=== PATIENT | male | born 1965 | race Caucasian/White ===

== ENCOUNTER 2017-08-24 08:59 | Inpatient (IN) ==
[2017-08-24] MEDS ORDERED: XYLOCAINE-MPF 1% INJ ONE (09:18)
[2017-08-24] MEDS ORDERED: VANCOMYCIN 1 GM/NS 1 GM/250 ML IVPB IV ONE ×2 (09:19→12:00)
[2017-08-24] MEDS ORDERED: XYLOCAINE 1% INJ ONE (09:26)
[2017-08-24] MEDS ORDERED: TORADOL IV ONE (09:28)
[2017-08-24 09:31] LABS: URINE CULTURE PL NEEDED? NO
[2017-08-24 09:51] LABS: UR AMPHETAMINES QUAL PRESUMPTIVE POSITIVE (NONE DETECT); UR BARBITUATES QUAL NONE DETECTED (NONE DETECT); UR BENZODIAZEPIN QUAL NONE DETECTED (NONE DETECT); UR CANNABINOIDS QUAL NONE DETECTED (NONE DETECT); UR COCAINE QUAL NONE DETECTED (NONE DETECT); UR MDMA QUAL NONE DETECTED (NONE DETECT); UR METHADONE QUAL NONE DETECTED (NONE DETECT); UR METHAMPHETAMINE QUAL PRESUMPTIVE POSITIVE (NONE DETECT); UR OPIATES QUAL NONE DETECTED (NONE DETECT); UR OXYCODONE QUAL NONE DETECTED (NONE DETECT); UR PCP QUAL NONE DETECTED (NONE DETECT); UR TCA QUAL NONE DETECTED (NONE DETECT)
[2017-08-24 09:57] LABS: MANUAL DIFF NEEDED? NO
[2017-08-24 09:59] LABS: BILIRUBIN URINE NEGATIVE (NEGATIVE); BLOOD URINE NEGATIVE (NEGATIVE); CLARITY CLEAR (CLEAR); COLOR YELLOW; GLUCOSE URINE NEGATIVE (NEGATIVE); LEUKOCYTES URINE TRACE (NEGATIVE); NITRITE URINE NEGATIVE (NEGATIVE); PH URINE 6.5; PROTEIN URINE TRACE mg/dL (NEGATIVE); URINE EPITHELIAL CELLS <10 /HPF (<10); URINE SOURCE CLEAN CATCH; URINE WBC <10 /HPF (<10); UROBILINOGEN URINE 4+(12 mg/dL)
--- NOTE | 2017-08-24 10:04 | PROVIDER DOCUMENTATION ---
This chart was entered by Heide Brannon Scribe, acting as scribe for Tan Davis MD. HPI-Rash/Wound/ReCheck - General Chief Complaint: Sores/Lesions Stated Complaint: RETURN/RECHECK Time Seen by Provider: 08/24/17 09:01 Source: patient Allergies/Adverse Reactions: Allergies Allergy/AdvReac Type Severity Reaction Status Date / Time No Known Allergies Allergy Verified 08/24/17 08:13 Home Medications: Home Medication List Medication Instructions Recorded Confirmed Last Taken Type Clindamycin [Cleocin] 150 mg PO Q6HR #30 capsule 08/22/17 08/24/17 08/23/17 21: 00 Rx - History of Present Illness-Dermatology Nature of Presenting Problem: Patient is a 52 year old male who presents to the ED with swelling and redness to left elbow. Patient states symptoms have been present for 2 days. Patient states unknown cause. Patient denies fever. Location: reports: upper extremity (left elbow) Quality: reports: painful Severity: reports: moderate Onset/Duration: reports: 2 days ago Timing: reports: still present Context/Associated Symptoms: reports: swelling/mass/lumps (swelling to left elbow), tender area (left elbow), other (redness to left elbow) Identifiable cause?: No Exposure: reports: unknown cause Similar Symptoms Previously?: Yes (present for 2 days ) Recently seen or treated by another doctor?: No - Recheck Treated days ago.: 2 Antibiotics given: prescription Symptoms since procedure:: reports: pain, redness Review of Systems - Adult - REVIEW OF SYSTEMS - ADULT Constitutional: reports: no symptoms reported Eyes: reports: no symptoms reported Ears, Nose, Mouth & Throat: reports: no symptoms reported Cardiovascular: reports: no symptoms reported Respiratory: reports: no symptoms reported Gastrointestinal: reports: no symptoms reported Genitourinary: reports: no symptoms reported Musculoskeletal: reports: other (left elbow pain). denies: back pain, neck pain Integumentary: reports: other (left elbow redness and swelling). denies: hives , itching, rash Neurological: reports: no symptoms reported Psychiatric: reports: no symptoms reported Endocrine: reports: no symptoms reported Hematologic/Lymphatic: reports: no symptoms reported Allergic/Immunologic: reports: no symptoms reported All Other Systems: Reviewed and Negative Past History - Adult - PAST MEDICAL HISTORY-ADULT Review of Records: reports: Nursing Assessment Review, Medications Reviewed, Social history reviewed & non-contributory. Major Childhood Illnesses: reports: denies history Cardiovascular: reports: denies history Respiratory: reports: denies history Gastrointestinal: reports: ulcer Obstetrical/Gynecological: reports: denies history Genitourinary: reports: denies history Musculoskeletal: reports: denies history Neurological: reports: denies history Endocrine/Immune: reports: denies history Other Conditions: reports: denies history - PRIOR SURGERIES/PROCEDURES Surgical/Procedure History: reports: reviewed, not pertinent - IMMUNIZATION STATUS Childhood Immunizations: See Nurse Assessment Flu Vaccine: See Nurse Assessment - FAMILY HISTORY Family History: reviewed, not pertinent - SOCIAL HISTORY Smoking: cigarettes, less than 1 pack/day Provider spent 3-5 mins advising pt. on dangers of tobacco.: Discussed manners to quit use, and f/u contacts for add'l counseling. Substance Use: denies Living Situation: family Physical Exam-General - PHYSICAL EXAM-ADULT Initial Vital Signs Reviewed: Yes - CONSTITUTIONAL General Appearance: appears well, alert, no apparent distress. negative: lethargic, slow to respond - EYES Eyes: PERRL/EOMI, pink conjunctivae. negative: pale conjunctivae, sunken eyes - HEAD, EARS, NOSE, MOUTH & THROAT HENMT: normal ENT inspection. negative: angioedema, hearing deficit - NECK Neck: normal inspection. negative: lymphadenopathy, tender lateral - RESPIRATORY Respiratory: chest non-tender, lungs clear, normal breath sounds. negative: rales, rhonchi, stridor - CARDIOVASCULAR Cardiovascular: normal peripheral pulses, regular rate, rhythm. negative: tachycardia, systolic murmur - GASTROINTESTINAL (ABDOMEN) Abdominal Exam: normal bowel sounds, non tender, soft. negative: guarding, rebound - LYMPHATIC Lymphatic: no adenopathy. negative: enlargement, streaking - MUSCULOSKELETAL Back Exam: normal inspection. negative: ecchymosis, swelling Extremity: erythema (left elbow), swelling (left elbow), tenderness (left elbow) , other (limited ROM to left elbow due to pain and swelling). negative: normal range of motion, non-tender, normal inspection - SKIN Integumentary: erythema (left elbow), swelling (left elbow), warm (left elbow). negative: diaphoresis, ecchymosis, pallor - NEUROLOGIC Neurologic: grossly normal. negative: aphasia, facial droop - PSYCHIATRIC Psych/Mental Status: normal mood/affect, oriented x 3. negative: paranoid, tearful Progress - PLAN OF CARE/RESULTS Progress/Plan/Lab Results: Vital Signs - 8 hr 08/24/17 09:17 Temperature 97.5 F L Pulse Rate 67 Respiratory Rate 18 Blood Pressure 120/78 O2 Sat by Pulse Oximetry 100 Laboratory Results - last 24 hr 08/24/17 08/24/17 09:00 09:00 Urine Source CLEAN CATCH Urine Color YELLOW Urine Clarity CLEAR Urine pH 6.5 Ur Specific [place] 1.020 Urine Protein TRACE A Urine Ketones TRACE Urine Blood NEGATIVE Urine Nitrite NEGATIVE Urine Bilirubin NEGATIVE Urine Urobilinogen 4+(12 mg/dL) Urine WBC TRACE A Urine Microscopic WBC <10 Ur Epithelial Cells <10 Urine Glucose NEGATIVE Urine Opiates Screen NONE DETECTED Ur Oxycodone Screen NONE DETECTED Urine Methadone Screen NONE DETECTED Ur Barbituates Screen NONE DETECTED Ur Tricyclics Screen NONE DETECTED Ur Phencyclidine Scrn NONE DETECTED Ur Amphetamines Screen PRESUMPTIVE POSITIVE A U Methamphetamines Scrn PRESUMPTIVE POSITIVE A Urine MDMA Screen NONE DETECTED U Benzodiazepines Scrn NONE DETECTED Urine Cocaine Screen NONE DETECTED U Cannabinoids Screen NONE DETECTED Orders Category Date Time Status Admit - [facility] Routine AdmDCTranf 08/24/17 09:33 Ordered I and D Set up DIRECTED Care 08/24/17 09:18 Active I&D [I and D Set up] DIRECTED Care 08/24/17 09:27 Active Saline Loc NOW Care 08/24/17 09:19 Active Saline Loc NOW Care 08/24/17 09:27 Active BLOOD CULTURE [BLDCUL] Stat Lab 08/24/17 09:17 Ordered CBC WITH ELECTRONIC DIFF [HEME] Stat Lab 08/24/17 09:32 Results CMP [COMPREHENSIVE METABOLIC PANEL] [CHEM] Stat Lab 08/24/17 09:32 Received UA NIMS W/REFLEX CULT PL [URINALYSIS] Stat Lab 08/24/17 09:00 Completed UDS [URINE DRUG SCREEN PL] Stat Lab 08/24/17 09:00 Completed WOUND CULTURE INC GRAM STAIN [RM] Routine Lab 08/24/17 09:39 Ordered Cefazolin 1 gm/D5w [Kefzol 1 gm/D5w] Med 08/24/17 09:45 Active 1 gm in 50 ml IV Q8H Ketorolac [Toradol] Med 08/24/17 09:28 Discontinued 30 mg IV NOW ONE Lidocaine 1% Pf [Xylocaine-Mpf 1%] Med 08/24/17 09:18 Discontinued 5 ml INJ NOW ONE Lidocaine 1% [Xylocaine 1%] Med 08/24/17 09:26 Discontinued 2 ml INJ NOW ONE Vancomycin 1 gm/Ns Med 08/24/17 09:19 Active 1 gm in 250 ml IV NOW Transfer/Admit Order [TRANSFER] Routine Transfer 08/24/17 09:36 Ordered Result Diagrams: 08/24/17 09:32 - REASSESSMENT Reassessment #1 Time Reassessed: 10:03 Status: unchanged - CONSULTS/PCP/HOSPITALIST Notification #1 *Consult/PCP/Hospitalist*: Dr Miller Time Discussed: 09:00 Consult Disposition: Admit Procedures - INCISION & DRAINAGE Site: left elbow Abscess Type: Subcutaneous Prepped with: Betadine Anesthetic: 1%, Lidocaine/Xylocaine Volume of Anesthetic (ml's): 5 Blade Size: 11 Packing placed?: Yes Sterile Dressing Applied?: Yes Drainage: Small Amount Departure - Departure Date of Disposition Decision: 08/24/17 Time of Disposition Decision: 10:03 DIAGNOSIS: Cellulitis of left elbow Disposition: ADMITTED INPATIENT 09 Certified Medical Emergency: Emergent Condition: Stable Referrals and Follow-Ups: None,PCP [Primary Care Provider] - - Critical Care Note This patient required my direct & personal management of CC.: No Attestation - Physician/ MARU Attestation Patient care was provided by Advanced Practice Provider:: Yes Advanced Practice Provider:: Marlin Santana Advanced Practice Provider documentation review:: The Mid-level provider documentation, treatment plan and medical decision making was reviewed by the physician who agrees with all treatment and medical decision making by the MLP. The physician spent face to face time with patient:: Yes Advanced Practice Provider documentation review:: Supervising physician onsite and consulted in the evaluation and care of this patient. The physician did have a face to face encounter with the patient. This chart was documented by the indicated scribe, (Heide Brannon Scribe) and accurately reflects the services I performed and decisions made by me, Tan Davis MD, as attested by the provider's signature.
[2017-08-24 10:17] LABS: AGAP 11; ALKALINE PHOSPHATASE 70 U/L (32-122); BUN 12 mg/dL (8-22); CALCIUM 9.6 mg/dL (8.8-10.2); CHLORIDE 97 mmol/L (98-107); COSMO 272; GOT 64 U/L (10-34); GPT 34 U/L (10-44); POTASSIUM 3.4 mmol/L (3.5-5.1); SODIUM 135 mmol/L (136-145); TCO2 26 mmol/L (25-35); TOTAL PROTEIN 7.5 g/dL (6.3-8.3)
[2017-08-24 10:41] LABS: BASO% 0.2 % (0.0-0.8); EOS# 0.09 X1000 (0.0-0.7); EOS% 0.8 % (0.0-10.0); HEMATOCRIT 42.2 % (42.0-52.0); IMM GRAN# 0.02 X1000 (0.0-0.04); IMM GRAN% 0.2 % (0.0-0.5); LYMPH# 1.47 X1000 (1.2-3.4); LYMPH% 13.2 % (20.5-51.1); MCHC 35.5 g/dL (33-37); MCV 95.7 FL (81-99); MONO# 1.34 X1000 (0.11-0.59); MONO% 12.1 % (1.7-9.3); MPV 10.7 FL (7.4-10.4); NEUT% 73.5 % (42.2-75.2); PLT 226 X1000 (130-400); RBC 4.41 XMIL (4.7-6.1)
[2017-08-24] MEDS: KEFZOL 1 GM/D5W 1 GM/50 ML IVPB IV SCH ×2 (10:55→17:53)
--- NOTE | 2017-08-24 10:58 | Diag Imaging Result Doc PS360 ---
EXAM: ELBOW COMPLETE RIGHT HISTORY: cellulitis, evaluate for effusion TECHNIQUE: Three views COMPARISON: None. FINDINGS: There is a 4 mm soft tissue calcification or foreign body medially. No effusion is appreciated. There is an erosion with osteophyte formation involving the anterior distal humerus, likely lateral condyle. There is a small olecranon spur. No soft tissue gas is appreciated. IMPRESSION: 1.No evidence for effusion. 2.Degenerative change with possible erosion lateral condyle and tiny olecranon spur. 3.Calcification versus foreign body medial soft tissues. Electronically signed by Leah Chavez 08/24/2017 10:56 AM
[2017-08-24] MEDS ORDERED: VANCOMYCIN IV PER PHARMACY MISC SCH (11:39)
[2017-08-24] MEDS ORDERED: TYLENOL PO PRN (13:04)
[2017-08-24] MEDS ORDERED: ZOFRAN ODT PO PRN (13:04)
[2017-08-24] MEDS: PERCOCET-5 PO PRN ×3 (13:29→21:52)
[2017-08-24] MEDS ORDERED: BOOSTRIX VACCINE IM ONE (17:04)
--- NOTE | 2017-08-24 18:27 | HISTORY AND PHYSICAL ---
CHIEF COMPLAINT: Left elbow pain. HISTORY OF PRESENT ILLNESS: This is a 52-year-old male with a history of gastric ulcer. He presented to the emergency room complaining of left elbow pain and swelling. The patient first presented on August 22 to the ER which was about 24 hours after first symptoms began. At this time he stated he had awakened that morning with his elbow that was red, swollen and tender with no other symptoms. He was given a prescription for clindamycin which he did not fill, he states it is still sitting at the pharmacy waiting on him to pick it. He returned to the emergency room 48 hours later for a recheck stating that at that time, he had erythema that was documented 15 x 9 cm up his arm with a red and warm elbow. Admission was recommended but the patient refused direct admission stating that he had something to do and he would return later. This was at about 8:30 the morning of admission. He returned to the emergency room about 45 minutes later. At that time he went underwent an I and D and reportedly cultures were obtained. He was given vancomycin and admitted for further evaluation and treatment. PAST MEDICAL HISTORY: Denies. SURGICAL HISTORY: Denies. SOCIAL HISTORY: He smokes a pack a day. He denies any alcohol use. He does use occasional methamphetamines. ALLERGIES: No known drug allergies. HOME MEDICATIONS: Denies. REVIEW OF SYSTEMS: A 14 point review of systems is discussed with patient with pertinent positives stated in HPI. He denied chest pain, palpitations, dizziness, syncope, cough, fever, chills, PND, orthopnea, shortness of breath, any nausea, vomiting, diarrhea, constipation, black or bloody vomitus, black or bloody stools, hematuria, dysuria, frequency, urgency. PHYSICAL EXAMINATION: GENERAL: This is a 52-year-old male who is sitting in the bed, in no distress. VITAL SIGNS: Blood pressure is 133/80 with a heart rate of 74, temperature is 97.5 degrees oral, room air saturations 99-100%. HEENT: Head is normocephalic, atraumatic. Pupils equal, round, react to light. EOMs are intact. Sclerae anicteric. Mucous membranes are moist. NECK: Supple. Trachea midline. CARDIOVASCULAR: Regular rate and rhythm. S1, S2 appreciated. PULMONARY: Breath sounds are clear. No increased work of breathing noted. GASTROINTESTINAL: Soft, nontender, nondistended. Bowel sounds in all 4 quadrants. MUSCULOSKELETAL: Good range of motion of joints. EXTREMITIES: No clubbing, cyanosis, or edema. Calves are nontender. Pulses are palpable x 4. SKIN: Warm and dry with a bandage intact to his left elbow with erythema noted above and below which is marked from the emergency room. NEUROLOGIC: He is alert and oriented x 3 with cranial nerves 2-12 grossly intact. DIAGNOSTICS: Labs WBC is 11.1, with a hemoglobin 15, hematocrit 42.2 and platelets of 226,000. Sodium 135, potassium 3.4, BUN 12, creatinine 0.7 with a glucose of 135. Total bilirubin is 1.3 with AST of 64. Urine drug screen is positive for methamphetamines and amphetamines. X-rays: Elbow x-ray revealed no evidence for effusion, degenerate changes with possible erosion to the lateral condyle and tiny olecranon spur with a 4 mm soft tissue calcification or foreign body that is medially. No soft tissue gas is appreciated. Blood cultures and wound culture are pending. ASSESSMENT: 1. Cellulitis left elbow. 2. Leukocytosis. 3. 4 mm foreign body to left arm. 4. Tobacco use and abuse. 5. Methamphetamine use within the last 24 hours. PLAN: He will be admitted to the floor. Will be placed on a regular diet. We will use Percocet for pain and Zofran for nausea. We will continue with vancomycin q. 12 hours as well as Kefzol q. 8h. We will consult General Surgery with packing and dressing changes per their expertise. Further treatments pending hospital course. Dictated by MARY JANE Hemphill for Yaakov Miller MD cc: MARY JANE Hemphill MD
[2017-08-24] MEDS ORDERED: ATIVAN IV ONE (20:22)
--- NOTE | 2017-08-24 21:19 | PROGRESS NOTE ---
DATE: 08/24/2017 SUBJECTIVE: Briefly this is a 52-year-old male presenting with pain and swelling in his left elbow. He had an open wound there. 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 Initially he just had some redness. He went to the ER. He was placed on clindamycin, which he said he took for about 24 hours, but the redness got worse, progressed up his arms, so he came in for evaluation. Today erythema is improved. He does have incision and drainage incision on his left arm with some surrounding erythema, but he can move his elbow. Plain film shows maybe a small fragment of metal that is near his olecranon process just inferior to it. He has a left arm cellulitis and he has been placed on vancomycin and cefazolin. We will see how he does and get a surgical consult. cc: Yaakov Miller MD
[2017-08-25] MEDS: KEFZOL 1 GM/D5W 1 GM/50 ML IVPB IV SCH ×3 (01:30→17:08)
[2017-08-25] MEDS: VANCOMYCIN 1,500 MG in NS 250 ML IV SCH ×2 (02:01→14:12)
[2017-08-25] MEDS: PERCOCET-5 PO PRN ×3 (05:57→17:07)
[2017-08-25 06:31] LABS: HEMATOCRIT 41.1 % (42.0-52.0); HEMOGLOBIN 14.2 g/dL (14.0-18.0); MCH 33.6 PG (27-31); MCHC 34.5 g/dL (33-37); MCV 97.4 FL (81-99); MPV 9.8 FL (7.4-10.4); RBC 4.22 XMIL (4.7-6.1)
[2017-08-25 06:56] LABS: AGAP 8; ALBUMIN 3.3 g/dL (3.5-5.0); ALKALINE PHOSPHATASE 76 U/L (32-122); BUN 13 mg/dL (8-22); CALCIUM 8.9 mg/dL (8.8-10.2); CHLORIDE 104 mmol/L (98-107); COSMO 276; GOT 37 U/L (10-34); GPT 25 U/L (10-44); POTASSIUM 4.1 mmol/L (3.5-5.1); SODIUM 138 mmol/L (136-145); TCO2 27 mmol/L (25-35); TOTAL PROTEIN 6.1 g/dL (6.3-8.3)
--- NOTE | 2017-08-25 07:40 | CONSULTATION ---
DATE OF CONSULTATION: 08/25/2017 HISTORY OF PRESENT ILLNESS: Mr. Jerrell Boykin is a 52-year-old white male has a 4 to 5-day history of swelling and cellulitis of his left elbow. He presented to the emergency department several days ago, was treated with p.o. clindamycin, which evidently he did not take or fill. He re-presented to the emergency department on 08/24/2017, and underwent incision and drainage evidently by an ED physician, and he was admitted with ongoing cellulitis left elbow. We were asked to evaluate him because of his cellulitis and possible foreign body soft tissue, left elbow. PAST MEDICAL HISTORY: None. MEDICATIONS: None. ALLERGIES: None. SOCIAL HISTORY: He is a smoker. He does work. He has states that he has to be in court today. REVIEW OF SYSTEMS: A 14-point review of systems was performed and was essentially negative. FAMILY HISTORY: Noncontributory. PHYSICAL EXAMINATION: General: Mr. Boykin is a middle-aged, white male awake, cooperative. No jaundice, no oral lesions. No cervical or supraclavicular lymphadenopathy. Heart: Regular rate. Lungs: Clear to auscultation and percussion bilaterally. Abdomen: Soft. No tenderness. No palpable mass. No costovertebral tenderness. Rectal: Was not performed. He does have palpable peripheral pulses throughout. His left arm at the elbow was swollen, and this swelling extends down into the proximal left forearm. He has a small open wound that was packed with iodoform. There appears to be no undrained purulence. 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 DIAGNOSTIC DATA: A plain x-ray of the elbow and forearm suggest no gas, possible 4 mm foreign body soft tissue. His white blood cell count has gone from 11 to 6. It appears that previously marked cellulitis has improved. IMPRESSION AND PLAN: Cellulitis left elbow with swelling and pain. It seems to be improving on intravenous antibiotics. He does have a small open wound. I removed the packing this morning, and that wound needs to just be dressed daily, and cleanse with peroxide. There does not appear on exam to be any undrained purulence, and I would treat this swelling and cellulitis with IV antibiotics. It is unclear whether this is a calcification or foreign body in the soft tissue up at the elbow. It is too small to go after surgically at this point and would treat this elbow as above. cc: Yvette Holden MD
[2017-08-25] MEDS: ATIVAN IV PRN ×3 (09:36→19:49)
--- NOTE | 2017-08-25 18:23 | PROGRESS NOTE ---
DATE: 08/25/2017 SUBJECTIVE: Patient has no focal complaints. Pain is improved. OBJECTIVE: Vital signs: Blood pressure 116/86, heart rate of 97, respiratory rate 18, temperature 97.9 degrees, 98% on room air. Cardiovascular: Regular rate and rhythm. Pulmonary: Bilateral breath sounds. Clear to auscultation. GI: Soft, nontender, nondistended. Bowel sounds are positive. Left upper extremity: Is wrapped. He still has some erythema, but overall improved. There is some purulent drainage from his wound. LABORATORY DATA: White count 6, hemoglobin and hematocrit 14 and 41, platelets 220,000. CMP looked okay. PROBLEM LIST: 1. Left elbow cellulitis, possibly related to MRSA versus strep. We will continue empiric antibiotics. He is on cefazolin and vancomycin and seems to be improved. We will continue to follow. 2. Methamphetamine abuse. We will continue to manage. He denies any IV drug use. We are getting by just on oral pain medications at this point. DISPOSITION: Hopefully if somewhat improved and we get culture results, possibly home tomorrow. cc: Yaakov Miller MD
[2017-08-25] MEDS: PERCOCET-10 PO PRN (19:49)
[2017-08-26] MEDS: VANCOMYCIN 1,500 MG in NS 250 ML IV SCH (00:58)
[2017-08-26] MEDS: PERCOCET-10 PO PRN ×2 (02:12→09:08)
[2017-08-26] MEDS: KEFZOL 1 GM/D5W 1 GM/50 ML IVPB IV SCH ×2 (02:12→09:08)
[2017-08-26 06:50] LABS: AGAP 9; BUN 11 mg/dL (8-22); CALCIUM 8.7 mg/dL (8.8-10.2); CHLORIDE 106 mmol/L (98-107); COSMO 275; POTASSIUM 4.2 mmol/L (3.5-5.1); SODIUM 137 mmol/L (136-145); TCO2 21 mmol/L (25-35)
[2017-08-26 07:17] LABS: HEMATOCRIT 40.3 % (42.0-52.0); HEMOGLOBIN 14.1 g/dL (14.0-18.0); MCH 34.4 PG (27-31); MCV 98.3 FL (81-99); MPV 10.1 FL (7.4-10.4); RBC 4.1 XMIL (4.7-6.1)
[2017-08-26 07:53] VITALS: BP 136/87
[2017-08-26] MEDS: ATIVAN IV PRN (09:22)
[2017-08-26 12:51] LABS: HEPATITIS PROFILE ACUTE SEE COMMENTS
[2017-08-26] MEDS ORDERED: VANCOMYCIN 1,700 MG in NS 250 ML IV SCH (13:00)
--- NOTE | 2017-08-26 22:12 | DISCHARGE SUMMARY ---
ADMISSION DATE: 08/24/2017 DISCHARGE DATE: 08/26/2017 DIAGNOSES: 1. Left elbow cellulitis with wound cultures and blood cultures negative. 2. Methamphetamine abuse. DIAGNOSTICS: 1. 08/24/2017 left elbow x-ray revealed no evidence for effusion, degenerative change with possible erosion of the lateral condyle and tiny olecranon spur. 2. 4 mm soft tissue calcification or foreign body medially. CONSULTATIONS: Matteo Holden MD of General Surgery. MICROBIOLOGY: 1. Blood cultures x2 revealed no growth after 48 hours. 2. Wound culture revealed no growth. 3. Gram stain of left elbow wound revealed occasional gram- positive cocci and white blood cells. HOSPITAL COURSE: Mr. Boykin presented to the emergency room complaining of swelling, redness and pain to his left elbow. 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 There were small metal shavings around. He felt as if he had table and one of the shavings was possibly in his arm but it could not be seen or felt. Within 48 hours he had pain, redness and swelling. He presented to the emergency room. He was prescribed antibiotics which he did not turkey picker nor take. He presented back to the emergency room 2 days later for recheck. At that time his arm swelling had increased with more redness and pain had increased. He was recommended to be admitted. At that time he refused to be admitted stating that he had to leave to go to take care of something and he left for about an hour and he returned. At that time an I and D was performed, cultures were obtained, and he was admitted for IV antibiotics. He did test positive for methamphetamines at this time. He did admit to using methamphetamines but he states he does not do this on a regular basis. His antibiotic coverage was vancomycin and Kefzol during the hospitalization. He was evaluated by Dr. Matteo Holden who felt he did not need any surgical treatment at this time. His wound packing was removed per Dr. Holden. He has had no drainage. The patient was given instructions for home dressing changes per Dr. Holden. As stated above, all cultures were negative. He has been afebrile. DISCHARGE PHYSICAL EXAMINATION: Cardiovascular: Regular rate and rhythm. S1, S2 appreciated. Pulmonary: Breath sounds are clear. No increased work of breathing noted. Gastrointestinal: Abdomen is soft, nontender, nondistended. Bowel sounds in all 4 quadrants. Extremities: No clubbing, cyanosis, or edema. Pulses are palpable x4. He does have a dressing that is dry and intact to his elbow. DISCHARGE VITAL SIGNS: Blood pressure 136/80 with a heart rate of 73, respirations 18, temperature is 97.8 degrees with a room air saturation of 100. DISCHARGE MEDICATIONS: 1. Percocet 5/325, 1 q.6 hours p.r.n. 2. Doxycycline 100 mg p.o. b.i.d. 3. Keflex 500 mg p.o. t.i.d. both for 10 days. FOLLOWUP: 1. He needs to follow up with his primary care provider in 1-2 weeks, sooner if needed. 2. He has been instructed to call his primary care physician or return to the emergency room for any drainage, redness, edema, temperature greater than 101, or any questions or concerns that he may have. DISPOSITION: He is being discharged home in stable condition with family members. TIME SPENT: This is a greater than 30 minute discharge. Dictated by MARY JANE Hemphill for Yaakov Miller MD cc: MARY JANE Hemphill MD
== END 2017-08-26 13:10 | disposition home or self-care (01) ==
LOC: P.ED 08:59 → P.MEDSURG 08:59 → OBSVTOIN 09:00
PROVIDERS: ATTEND Internal Medicine